=== PATIENT | male | born 1980 | race Two or more races ===

== ENCOUNTER 2018-02-27 03:16 | Observation (INO) | payer OTHER ==
--- NOTE | 2018-02-27 03:26 | EDPHY ---
H & P Stated Complaint: HEMERRHOIDS/"SIGNIFICANT BLEEDING" Time Seen by Provider: 02/27/18 03:26 HPI/ROS: HPI CHIEF COMPLAINT: Hemorrhoidal pain, bright red blood per rectum HISTORY OF PRESENT ILLNESS: 38-year-old male, history of hemorrhoids, presents to the emergency room with hemorrhoidal pain. Patient states he intermittently suffers from hemorrhoids. He noticed some bright red blood per rectum earlier in the week. He states he has been suffering from hemorrhoids. He had a hard stool and then this started to bother room. Tonight he had 2 bowel movements rather painful. And states when he poops he has bright red blood per rectum. Painful rectal pain. Consistent with his previous experience with hemorrhoids. He has had external. However distally tonight he develops chills. He states took his temperature at home and had a temperature of 101 degrees. At triage he was 37.9. He denies any sore throat, cough, vomiting, diarrhea. Denies any abdominal pain, denies chest pain, shortness of breath. Past Medical History: Hemorrhoid Past Surgical History: no recent surgery Social History: Denies daily use of drugs alcohol tobacco. [employer] grad student. Family History: Noncontributory. ROS REVIEW OF SYSTEMS: A comprehensive 10 point review of systems is otherwise negative aside from elements mentioned in the history of present illness. Exam Constitutional nontoxic appearing in no acute distress, triage nursing summary reviewed, vital signs reviewed, awake/alert. Vital signs noted at triage low- grade temperature. Eyes normal conjunctivae and sclera, EOMI, PERRLA. HENT normal inspection, atraumatic, moist mucus membranes, no epistaxis, neck supple/ no meningismus, no raccoon eyes. Respiratory clear to auscultation bilaterally, normal breath sounds, no respiratory distress, no wheezing. Cardiovascular rate normal, regular rhythm, no murmur, no edema, distal pulses normal. Gastrointestinal rectal exam: Miguel Esqueda RN at bedside, palpable external hemorrhoids present. Very tender. No significant blood on exam, soft , non-tender, no rebound, no guarding, normal bowel sounds, no distension, no pulsatile mass. Genitourinary no CVA tenderness. Musculoskeletal no midline vertebral tenderness, full range of motion, no calf swelling, no tenderness of extremities, no meningismus, good pulses, neurovascularly intact. Skin pink, warm, & dry, no rash, skin atraumatic. Neurologic awake, alert and oriented x 3, AAOx3, moves all 4 extremities equally, motor intact, sensory intact, CN II-XII intact, normal cerebellar, normal vision, normal speech. Psychiatric normal mood/affect. Heme/Lymph/Immune no lymphadenopathy. Differential Diagnosis: Includes but is not limited to in a particular order hemorrhoidal pain, proctitis, colitis, diverticulitis, rectal infection, fissure , tear, UTI Medical Decision Making: Plan for this patient IV establishment IV fluid bolus , check basic blood work, lactic acid. Monitor for temperature. And re- evaluate. Re-evaluation: ED x-ray chest one view negative for acute cardiopulmonary disease. CT scan abdomen pelvis with IV contrast shows proctitis. No evidence of abscess. Additionally the bladder wall is thickened. The ureters are slightly dilated. However upon review of the patient's urinalysis this does not show any acute infection. I will send urine culture. Blood cultures. Given the patient's fever to 102. A possible proctitis on exam will most likely need to admit today for IV antibiotics and observation. Spoke with the hospitalist service they agree to admit. Dr. Wolff. Accepts Source: Patient - Personal History Current Tetanus Diphtheria and Acellular Pertussis (TDAP): Yes - Medical/Surgical History Hx Asthma: No Hx Chronic Respiratory Disease: No Hx Diabetes: No Hx Cardiac Disease: No Hx Renal Disease: No Hx Cirrhosis: No Hx Alcoholism: No Hx HIV/AIDS: No Hx Splenectomy or Spleen Trauma: No Other PMH: HEMERRHOIDS - Social History Smoking Status: Never smoked Constitutional: Initial Vital Signs Temperature (C) 37.9 C 02/27/18 03:23 Heart Rate 107 H 02/27/18 03:23 Respiratory Rate 16 02/27/18 03:23 Blood Pressure 122/75 H 02/27/18 03:23 O2 Sat (%) 97 02/27/18 03:23 O2 Delivery Mode Room Air Allergies/Adverse Reactions: No Known Allergies Allergy (Unverified 02/27/18 03:23) Home Medications: Medication Instructions Recorded Acetaminophen [Tylenol 325mg (*)] 650 mg PO Q4HRS PRN tab 02/28/18 Docusate Sodium [Colace 100 MG (*)] 100 mg PO BID cap 02/28/18 Ibuprofen [Motrin (*)] 600 mg PO Q6HRS PRN tab 02/28/18 Psyllium Seed [Metamucil (*)] 1 each PO DAILY pkt 02/28/18 Medical Decision Making - Data Points Laboratory Results: Laboratory Results 02/27/18 03:53 02/27/18 03:53 Microbiology Results: MICROBIOLOGY 02/27/18 05:55 Urine,Clean Catch Urine Culture - Final 02/27/18 06:15 Blood Blood Culture - Preliminary 02/27/18 06:20 Blood Blood Culture - Preliminary Medications Given: Discontinued Medications Acetaminophen (Tylenol) 1,000 mg PO EDNOW ONE Stop: 02/27/18 05:22 Last Admin: 02/27/18 05:22 Dose: 1,000 mg Docusate Sodium (Colace) 100 mg PO BID DIANA Stop: 08/26/18 10:59 Last Admin: 02/28/18 08:33 Dose: 100 mg Doxycycline Hyclate (Doxycycline Hyclate) 100 mg PO BID DIANA PRN Reason: Protocol Stop: 03/29/18 08:59 Last Admin: 02/28/18 08:33 Dose: 100 mg Sodium Chloride (Ns) 1,000 mls @ 0 mls/hr IV EDNOW ONE; Wide Open PRN Reason: Protocol Stop: 02/27/18 03:42 Last Admin: 02/27/18 03:58 Dose: 1,000 mls Ceftriaxone Sodium/Dextrose (Rocephin 1 Gm (Premix)) 50 mls @ 100 mls/hr IV EDNOW ONE PRN Reason: Protocol Stop: 02/27/18 06:28 Last Admin: 02/27/18 06:04 Dose: 50 mls Sodium Chloride (Ns) 1,000 mls @ 0 mls/hr IV ONCE ONE PRN Reason: Wide Open Stop: 02/27/18 06:10 Last Admin: 02/27/18 06:27 Dose: 1,000 mls Potassium Chloride/Sodium Chloride (Ns W/ 20 Kcl/L) 1,000 mls @ 150 mls/hr IV CONT DIANA Stop: 08/26/18 08:44 Last Admin: 02/28/18 08:33 Dose: 1,000 mls Ceftriaxone Sodium/Dextrose (Rocephin 1 Gm (Premix)) 50 mls @ 100 mls/hr IV DAILY DIANA PRN Reason: Protocol Stop: 03/30/18 08:59 Last Admin: 02/28/18 08:33 Dose: 50 mls Ibuprofen (Motrin) 800 mg PO EDNOW ONE Stop: 02/27/18 05:22 Last Admin: 02/27/18 05:22 Dose: 800 mg Oxycodone HCl (Oxycodone Ir) 5 - 10 mg PO Q6H PRN; Protocol PRN Reason: Pain, Severe Able to Take PO Stop: 03/09/18 16:42 Last Admin: 02/27/18 16:57 Dose: 5 mg Psyllium Hydrophilic Mucilloid (Metamucil/Konsyl) 1 each PO DAILY DIANA Stop: 08/26/18 11:59 Last Admin: 02/28/18 08:35 Dose: Not Given Senna (Senexon Oral Liquid) 8.8 - 17.6 mg PO BID PRN; Protocol PRN Reason: Constipation Stop: 08/26/18 20:59 Last Admin: 02/27/18 16:57 Dose: 8.8 mg Departure - Departure Disposition: [facility] Acute Clinical Impression: Proctitis Hemorrhoid Qualifiers: Hemorrhoid type: other Qualified Code(s): K64.8 - Other hemorrhoids Fever Qualifiers: Fever type: unspecified Qualified Code(s): R50.9 - Fever, unspecified Condition: Good
[2018-02-27] MEDS ORDERED: NS 1,000 ML IV ONE ×2 (03:41→06:09)
[2018-02-27 04:03] LABS: PLATELET COUNT 175 10^3/uL (150-400)
[2018-02-27] MEDS ORDERED: IBUPROFEN 800 MG TAB PO ONE ×2 (05:20→05:21)
[2018-02-27] MEDS ORDERED: ACETAMINOPHEN 500 MG TAB ONE (05:20)
[2018-02-27] MEDS ORDERED: ACETAMINOPHEN 500 MG TAB PO ONE (05:21)
[2018-02-27] MEDS ORDERED: IOPAMIDOL (ISOVUE-300) 100 ML BTL ONE (05:21)
[2018-02-27] MEDS ORDERED: ONDANSETRON DISINTEGRATING 4 MG TAB PO PRN (08:32)
[2018-02-27] MEDS ORDERED: ONDANSETRON 4 MG/2 ML VIAL IVP PRN (08:32)
[2018-02-27] MEDS ORDERED: ACETAMINOPHEN 325 MG TAB PO PRN (08:32)
--- NOTE | 2018-02-27 10:45 | PDGENHP ---
History and Physical - Chief Complaint rectal pain, fever - History of Present Illness 38 yo male with h/o hemorrhoids presents to ED with rectal pain. He saw Dr. Cornell at [facility] 2 yrs ago and had a sigmoidoscopy. That showed some irritation and inflammation, along with hemorrhoids. He uses suppositories and ointments to treat his hemorrhoids, but tries to eat a high fiber diet. Two months ago, he had an episode of external hemorrhoids, which involved bleeding and pain. This resolved with steroid suppository. However, one week ago, he began having more pain with BM and initial BM's are hard and painful. He had some bleeding as well. Last night, he developed severe rectal pain. Passing stool was extremely painful, but the pain is even worse 30-60 minutes later. Last night, he developed fever to 102 with chills and shakes. He came to the ED. In the ED, CT scan showed non-specific thickening rectum and pt is admitted for possible proctitis. History Information - Allergies/Home Medication List Allergies/Adverse Reactions: No Known Allergies Allergy (Unverified 02/27/18 03:23) Home Medications: Hydrocortisone Acetate [Hemorrhoidal Hc 25 mg supp (*)] 25 mg SD BID PRN [Last Taken 02/26/18] I have personally reviewed and updated: family history, medical history, social history, surgical history - Past Medical History Additional medical history: h/o hemorrhoids - Surgical History Reports: no pertinent surgical hx - Family History Positive for: non-pertinent - Social History Smoking Status: Never smoked Alcohol Use: None Drug Use: None Additional social history: has girlfriend, lives in [place] Review of Systems Review of Systems: ROS: 10pt was reviewed & negative except for what was stated in HPI & below Physical Exam Physical Exam: Temp Pulse Resp BP Pulse Ox 36.8 C 96 16 115/66 96 02/27/18 08:52 02/27/18 08:52 02/27/18 08:52 02/27/18 08:52 02/27/18 08:52 Constitutional: no apparent distress Eyes: PERRL Ears, Nose, Mouth, Throat: moist mucous membranes Cardiovascular: regular rate and rhythym, no murmur, rub, or gallop Respiratory: no respiratory distress, clear to auscultation Gastrointestinal: normoactive bowel sounds, soft, non-tender abdomen, other ( rectal exam done, extremely painful, no external hemorrhoids noted, no stool in vault) Skin: warm Musculoskeletal: full muscle strength Neurologic: AAOx3 Psychiatric: interacting appropriately Lab Data & Imaging Review 02/27/18 03:53 02/27/18 03:53 WBC 8.33 10^3/uL (3.80-9.50) 02/27/18 03:53 RBC 4.99 10^6/uL (4.40-6.38) 02/27/18 03:53 Hgb 14.6 g/dL (13.7-17.5) 02/27/18 03:53 Hct 41.7 % (40.0-51.0) 02/27/18 03:53 MCV 83.6 fL (81.5-99.8) 02/27/18 03:53 MCH 29.3 pg (27.9-34.1) 02/27/18 03:53 MCHC 35.0 g/dL (32.4-36.7) 02/27/18 03:53 RDW 11.9 % (11.5-15.2) 02/27/18 03:53 Plt Count 175 10^3/uL (150-400) 02/27/18 03:53 MPV 10.7 fL (8.7-11.7) 02/27/18 03:53 Neut % (Auto) 83.1 % (39.3-74.2) H 02/27/18 03:53 Lymph % (Auto) 9.6 % (15.0-45.0) L 02/27/18 03:53 Evans % (Auto) 6.4 % (4.5-13.0) 02/27/18 03:53 Eos % (Auto) 0.1 % (0.6-7.6) L 02/27/18 03:53 Baso % (Auto) 0.4 % (0.3-1.7) 02/27/18 03:53 Nucleat RBC Rel Count 0.0 % (0.0-0.2) 02/27/18 03:53 Absolute Neuts (auto) 6.93 10^3/uL (1.70-6.50) H 02/27/18 03:53 Absolute Lymphs (auto) 0.80 10^3/uL (1.00-3.00) L 02/27/18 03:53 Absolute Monos (auto) 0.53 10^3/uL (0.30-0.80) 02/27/18 03:53 Absolute Eos (auto) 0.01 10^3/uL (0.03-0.40) L 02/27/18 03:53 Absolute Basos (auto) 0.03 10^3/uL (0.02-0.10) 02/27/18 03:53 Absolute Nucleated RBC 0.00 10^3/uL (0-0.01) 02/27/18 03:53 Immature Gran % 0.4 % (0.0-1.1) 02/27/18 03:53 Immature Gran # 0.03 10^3/uL (0.00-0.10) 02/27/18 03:53 VBG Lactic Acid 1.8 mmol/L (0.7-2.1) 02/27/18 03:53 Sodium 138 mEq/L (135-145) 02/27/18 03:53 Potassium 3.7 mEq/L (3.3-5.0) 02/27/18 03:53 Chloride 106 mEq/L (97-110) 02/27/18 03:53 Carbon Dioxide 21 mEq/l (22-31) L 02/27/18 03:53 Anion Gap 11 mEq/L (8-16) 02/27/18 03:53 BUN 20 mg/dL (7-23) 02/27/18 03:53 Creatinine 0.7 mg/dL (0.7-1.3) 02/27/18 03:53 Estimated GFR > 60 02/27/18 03:53 Glucose 107 mg/dL (70-100) H 02/27/18 03:53 Calcium 9.0 mg/dL (8.5-10.4) 02/27/18 03:53 Total Bilirubin 0.5 mg/dL (0.1-1.4) 02/27/18 03:53 Conjugated Bilirubin 0.1 mg/dL (0.0-0.5) 02/27/18 03:53 Unconjugated Bilirubin 0.4 mg/dL (0.0-1.1) 02/27/18 03:53 AST 21 IU/L (17-59) 02/27/18 03:53 ALT 35 IU/L (21-72) 02/27/18 03:53 Alkaline Phosphatase 80 IU/L (38-126) 02/27/18 03:53 Total Protein 7.4 g/dL (6.3-8.2) 02/27/18 03:53 Albumin 4.1 g/dL (3.5-5.0) 02/27/18 03:53 Lipase 72 IU/L (23-300) 02/27/18 03:53 Urine Color YELLOW 02/27/18 05:30 Urine Appearance CLEAR 02/27/18 05:30 Urine pH 5.0 (5.0-7.5) 02/27/18 05:30 Ur Specific Moyers 1.012 (1.002-1.030) 02/27/18 05:30 Urine Protein NEGATIVE (NEGATIVE) 02/27/18 05:30 Urine Ketones NEGATIVE (NEGATIVE) 02/27/18 05:30 Urine Blood NEGATIVE (NEGATIVE) 02/27/18 05:30 Urine Nitrate NEGATIVE (NEGATIVE) 02/27/18 05:30 Urine Bilirubin NEGATIVE (NEGATIVE) 02/27/18 05:30 Urine Urobilinogen NEGATIVE EU (0.2-1.0) 02/27/18 05:30 Ur Leukocyte Esterase NEGATIVE (NEGATIVE) 02/27/18 05:30 Urine Glucose NEGATIVE (NEGATIVE) 02/27/18 05:30 Monoscreen NEGATIVE (NEGATIVE) 02/27/18 03:53 Assessment & Plan Assessment: Rectal pain - Pt thinks due to hemorrhoids, though no external hemorrhoids seen and wouldn't expect internal hemorrhoids to be this painful. Proctitis seems unlikely with no risk factors. CT images reviewed, non-specific thickening of rectum. Unclear significance of bladder thickening, UA neg. Has seen Dr. Cornell and had sigmoidoscopy in past. No enlarged prostate on exam or by CT. -discussed with Dr. Stanton, who suspects anal fissure (fever may be unrelated ) - plan to d/c in am with 0.2% nifedipine ointment TID and f/u with GI -send GC/chlamydia, HIV -cont ceftriaxone plus doxy while awaiting culture data -BCx's, UCx pending -GI consult appreciated Fever - CXR clear, UA neg, no infectious etiology or abscess on abd/pelvis CT. Pt remains afebrile today. -check PCT -cont atbx for now while awaiting culture data Constipation - chronic, likely related to pain from anal fissure -start with stool softener, metamucil, prn bowel protocol Full code Dispo - admit to obs
--- NOTE | 2018-02-27 11:16 | ASMTCMCOM ---
CM Note CM Note Notes: Chart reviewed. 38 year old [employer] student presented to ED with rectal pain and bright red blood with bowel movements. History significant for hemorrhoids. Normally lives independently. No needs anticipated. CM available should needs change. Plan: Likely home independently, Date Signed: 02/27/2018 11:15 AM Electronically Signed By:Monica Gasca RN
[2018-02-27 11:21] LABS: HIV TYPE 1 AND 2 NEGATIVE (NEGATIVE)
[2018-02-27] MEDS: DOXYCYCLINE HYCLATE 100 MG CAP/TAB PO SCH ×2 (11:33→21:39)
[2018-02-27] MEDS: NS W/ 20 KCl/L 1,000 ML IV SCH ×2 (11:49→20:06)
[2018-02-27] MEDS ORDERED: SENNOSIDES 17.6 MG/10 ML UDL PO PRN (11:59)
[2018-02-27] MEDS ORDERED: MAGNESIUM HYDROXIDE 30 ML UDCUP PO PRN (11:59)
[2018-02-27] MEDS ORDERED: POLYETHYLENE GLYCOL 3350 17 GM PKT PO PRN (11:59)
[2018-02-27] MEDS: DOCUSATE SODIUM 100 MG CAP PO SCH ×2 (12:51→21:39)
[2018-02-27] MEDS: PSYLLIUM METAMUCIL 1 PKT PO SCH (15:44)
[2018-02-27] MEDS ORDERED: IBUPROFEN 600 MG TAB PO PRN (16:43)
[2018-02-27] MEDS ORDERED: oxyCODONE IR 5 MG TAB PO PRN (16:43)
--- NOTE | 2018-02-27 19:11 | GCON ---
[f rep st] CONSULTATION REQUESTING PHYSICIAN: Dr. Jessie Marrufo. REASON FOR CONSULTATION: Rectal pain and fever. CHIEF COMPLAINT: Rectal pain. Briefly, Mr. Valles is a pleasant 38-year-old male. I was asked by Dr. marrufo to consult this patient to evaluate rectal pain. He reports approximately 10-15 days ago, he had a hard bowel movement. Since that time, he has had difficulty with rectal pain and spasm. He will have pain with every bowel movement. This pain is present throughout the day, but much worse as stool is passing. This has happened to him several times in the past. When it does happen, he will use topical [id number] and/or prescription hemorrhoidal creams and gradually achieve symptom resolution. This has been longer than typical for the symptoms to persist. On the day of admission, he began to notice some low-grade temperatures, and with the pain and fever, he presented to the emergency room for evaluation. He reports no diarrhea. He reports some blood in his stool. He denies any cough or congestion. He has had no headache. He denies dysuria. ALLERGIES: NONE. OUTPATIENT MEDICINES: Hemorrhoid suppository. PAST MEDICAL HISTORY: Hemorrhoids. PAST SURGICAL HISTORY: None. FAMILY HISTORY: There is no family history of colon cancer, colon polyps. SOCIAL HISTORY: Lives with his girlfriend in [place]. He does not use drugs or drink alcohol. REVIEW OF SYSTEMS: A complete 14-point review was undertaken with the patient and is negative except for those details described in the history of present illness. PHYSICAL EXAM: GENERAL: This is a well-developed male, in no apparent distress. HEENT: His pupils are equal, round, reactive to light and accommodation. His sclerae are nonicteric. His oropharynx is clear. CARDIOVASCULAR: Exam reveals regular rate and rhythm. RESPIRATORY: Exam reveals clear to auscultation without respiratory distress. GI exam reveals normoactive bowel sounds with soft, nontender abdomen. RECTAL: Exam was extremely painful. Only the tip of my finger could be advanced in the setting of this discomfort. No external hemorrhoids were visualized. SKIN: Warm and dry. NEUROLOGIC: Grossly nonfocal. PSYCH: Exam reveals normal mood and affect. JOINTS: Show no arthritis. LABORATORY: Shows a white count of 8.3, hemoglobin of 14.6, hematocrit of 41.7 , platelet count of 175. Sodium of 138, potassium of 3.8, chloride of 106, bicarb of 21, BUN of 20, creatinine of 0.7, glucose of 107. CT scan of the abdomen and pelvis done on admission revealed a normal-appearing appendix, some urinary bladder wall thickening. No prostatic abscess. Mild submucosal edema in the rectum with minor wall thickening perhaps representing mild proctitis. There is no rectal wall abscess. The ischial fossa is normal. There is no perirectal adenopathy. Constipation was noted. RECOMMENDATIONS: Based on his clinical exam and symptoms, I suspect he has a fissure. This would be very consistent with his clinical presentation and exam. This does not, however, serve as an adequate explanation for fever. His fever, however, may be incidental or related to something else. His x-ray, laboratory testing, etc., did not reveal an alternate source for his fever. Overall, he is feeling better. At this time, I recommend he start on a fissure ointment, 0.2% nifedipine cream, 0.2% nitroglycerin cream, or even 0.4% nitroglycerin cream are all options. I explained that he needs to use this therapy twice a day for 2-3 weeks. He can follow up as an outpatient in GI clinic if he is not resolving. At this time, I will sign off the patient's care. /[id number]/MODL MTDD
[2018-02-28 04:43] LABS: PLATELET COUNT 162 10^3/uL (150-400)
[2018-02-28 08:21] VITALS: BP 118/71
[2018-02-28] MEDS: NS W/ 20 KCl/L 1,000 ML IV SCH (08:33)
[2018-02-28] MEDS: DOCUSATE SODIUM 100 MG CAP PO SCH (08:33)
[2018-02-28] MEDS: DOXYCYCLINE HYCLATE 100 MG CAP/TAB PO SCH (08:33)
[2018-02-28] MEDS: PSYLLIUM METAMUCIL 1 PKT PO SCH (08:35)
--- NOTE | 2018-02-28 16:22 | GDS ---
[f rep st] DISCHARGE SUMMARY DISCHARGE DIAGNOSES: 1. Rectal pain likely secondary to anal fissure. 2. Fever of unclear etiology, resolved. 3. Constipation. CONSULTANTS: Dr. Sam Stanton, gastroenterology. HISTORY OF DETAILS: Please see history and physical dated February 27, 2018. In brief, Mr. Henna Miranda is a 38-year-old male with a long history of chronic constipation, who presents to the emergen cy department with rectal pain and fever. He was admitted to the hospital for further evaluation. HOSPITAL COURSE: Patient was admitted to the med/surg unit. He underwent a CT scan in the emergency department, which showed a nonspecific thickening of the rectum. He was initially treated with ceft riaxone and doxycycline for possible proctitis. However, he has no risk factors for this. His blood cultures are negative at the time of discharge. Urinalysis was negative. Chest x-ray was clear. T here was no source of obvious infection in his abdomen CT. He had no further fevers during the hospi talization. In addition, he had a normal white blood cell count and a normal lactate. GI consult wa s obtained, and it was felt that his condition was most likely secondary to an anal fissure, which ma y be worsening his constipation. In addition, his chronic use of steroid cream for presumed hemorrho ids may have also contributed to worsening of his fissure. I recommend he discontinue the steroid cr eam at discharge. He is given a prescription for nifedipine 0.2% ointment twice daily for 3 weeks, a nd he should follow up with Gastroenterology if his symptoms are not improved. DISPOSITION: Patient is discharged home in stable condition. FOLLOWUP: 1. Dr. Sam Stanton, Gastroenterology. 2. Primary Care at [facility]. His blood cultures are still preliminarily negative, but should have followup on the final report. DISCHARGE MEDICATIONS: 1. Please see [facility] completed outpatient medication list. New medications on discharge include n ifedipine 0.2% ointment applied twice daily, quantity dispense 30 g tube. 2. Tylenol 650 mg p.o. q.4 hours p.r.n. 3. Docusate 100 mg p.o. twice daily. 4. Metamucil 1 packet daily. 5. Ibuprofen 600 mg p.o. q.6 hours p.r.n. pain. 6. I recommend he discontinue hydrocortisone hemorrhoid cream as there was no evidence of hemorrhoid on exam. /[id number]/MODL
[2018-03-02 14:01] LABS: GC AMPLIFICATION GENPROBE NEGATIVE (NEGATIVE)
== END 2018-02-28 10:15 | disposition home or self-care (01) ==
LOC: F1N 08:50
PROVIDERS: ADMIT Hospitalist; ATTEND Hospitalist
DX: K62.89 Other specified diseases of anus and rectum (principal); R50.9 Fever, unspecified; E86.9 Volume depletion, unspecified; K59.00 Constipation, unspecified; Z87.19 Personal history of other diseases of the digestive system
CPT/HCPCS: 71045; 74177; 96361; 96365; 99285; G0378; J0696; Q9967